=== PATIENT | female | born 1985 | race Hispanic/Latino ===

== ENCOUNTER 2016-11-17 08:16 | Outpatient (CLI) | payer OTHER ==
[2016-11-17] MEDS ORDERED: Iopamidol 370 76% 100 ML VIAL ONE (09:00)
--- NOTE | 2016-11-17 10:59 | CT ---
CT ABDOMEN AND PELVIS WITH IV AND ORAL CONTRAST: HISTORY: Ongoing right lower quadrant pain. Recent appendectomy. COMPARISON: 10/31/16. FINDINGS: The lung bases are clear. Dystrophic calcification associated with the liver is stable compared to the previous exam. Gallbladder is surgically absent. The area of parenchymal scarring at the super ior pole of the right kidney is stable. The appendix is now surgically absent. No evidence of bowel obstruction. No abdominal abscesses ar e visible. Within the deep subcutaneous tissues of the left lower quadrant, just superficial to the left lower quadrant abdominal wall musculature, is a well-circumscribed predominantly oval fluid collection mariam suring up to 3.5 cm width x 2.9 cm length x 1.7 cm depth. IMPRESSION: 1. Interval appendectomy. Small well-circumscribed fluid pocket within the deep subcutaneous tissu es of the left lower quadrant is likely related to recent surgery. There is no adjacent inflammatio n or internal gas to suggest that it is infected. 2. Other chronic-type findings are stable. POS: STEPHANIE
== END 2016-11-17 08:17 | disposition home or self-care (01) ==
LOC: SCSCT 08:16
PROVIDERS: ATTEND Surgery
DX: K37 Unspecified appendicitis (principal)
CPT/HCPCS: 74177